=== PATIENT | female | born 1935 | race Two or more races ===

== ENCOUNTER 2019-09-05 17:26 | Inpatient (IN) | payer MEDICARE, OTHER ==
[~2019-09-05] VITALS: Ht 162.6 cm; Wt 76.2 kg
--- NOTE | 2019-09-05 17:59 | NUR ---
called [facility] to verify the md who sent the pt: Dr.kazazian jesse malave also talked to the nurse taking care of the pt at [facility].
--- NOTE | 2019-09-05 18:14 | NUR ---
[employer] APPRENTICE AT [facility] (ZEKE)
[2019-09-05] MEDS ORDERED: MAGN200T5 PO (18:24)
[2019-09-05] MEDS ORDERED: INSU100C (18:24)
[2019-09-05] MEDS ORDERED: WARF7.5T23 PO (18:24)
[2019-09-05] MEDS ORDERED: QUET25TA PO (18:24)
[2019-09-05] MEDS ORDERED: WARF5TAB77 PO (18:24)
[2019-09-05] MEDS ORDERED: OMEP20TA20 PO (18:24)
[2019-09-05] MEDS ORDERED: LEVO50TA8 PO (18:24)
[2019-09-05] MEDS ORDERED: SIMV10TA2 PO (18:24)
[2019-09-05] MEDS ORDERED: MAGN400O6 PO (18:24)
[2019-09-05] MEDS ORDERED: GLUC1KIT2 IJ (18:24)
[2019-09-05] MEDS ORDERED: LOSA25TA3 PO (18:24)
[2019-09-05] MEDS ORDERED: SPIR25TA PO (18:24)
[2019-09-05] MEDS ORDERED: BLOO-140 IN (18:24)
[2019-09-05] MEDS ORDERED: INSU100V7 SQ (18:24)
[2019-09-05] MEDS ORDERED: FERR325T28 PO (18:24)
[2019-09-05] MEDS ORDERED: BISA10SU61 RC (18:24)
[2019-09-05] MEDS ORDERED: BISO5TAB21 PO (18:24)
[2019-09-05] MEDS ORDERED: DOCU-141 PO (18:24)
[2019-09-05] MEDS ORDERED: APIX2.5T PO (18:24)
[2019-09-05] MEDS ORDERED: NA P133E RC (18:24)
[2019-09-05] MEDS ORDERED: DIGO125T PO (18:24)
[2019-09-05] MEDS ORDERED: INSU3INS6 SQ (18:24)
[2019-09-05] MEDS ORDERED: BUME2TAB7 PO (18:24)
[2019-09-05] MEDS ORDERED: CALC0.253 PO (18:24)
--- NOTE | 2019-09-05 18:29 | NUR ---
TON (ZEKE) AWARE OF PT HERE IN THE ER
--- NOTE | 2019-09-05 19:04 | NUR ---
called Dr. mac per order.
[2019-09-05 19:09] LABS: BASOPHILS % (AUTO) 0.5 % (0.0-2.0); EOSINOPHILS # (AUTO) 0.2 K/uL (0.0-0.7); EOSINOPHILS % (AUTO) 3.1 % (0.0-7.0); HEMOGLOBIN 12.9 g/dL (10.9-14.3); LYMPHOCYTES # (AUTO) 0.5 K/uL (20.0-40.0); LYMPHOCYTES % (AUTO) 6.9 % (20.5-51.5); MEAN CORPUSCULAR HEMOGLOBIN 28.6 uug (24.7-32.8); MEAN CORPUSCULAR HGB CONC 33 g/dL (32.3-35.6); MEAN CORPUSCULAR VOLUME 86.5 fL (75.5-95.3); MONOCYTES # (AUTO) 0.7 K/uL (2.0-10.0); NEUTROPHILS # (AUTO) 5.9 K/uL (1.8-8.9); NEUTROPHILS % (AUTO) 80.5 % (38.5-71.5); PLATELET COUNT (AUTO) 258 K/uL (179-408); RED BLOOD CELL COUNT(AUTO) 4.51 MIL/uL (3.63-4.92); WHITE BLOOD COUNT (AUTO) 7.3 K/uL (3.8-11.8)
[2019-09-05 19:13] LABS: CARBON DIOXIDE 36 mmol/L (21-32); CHLORIDE 95 mmol/L (98-107); CREATININE 1.7 mg/dL (0.6-1.3); GLUCOSE 128 mg/dL (74-106); POTASSIUM 3.5 mmol/L (3.5-5.1); UREA NITROGEN, BLOOD 38 mg/dL (7-18)
--- NOTE | 2019-09-05 19:13 | NUR ---
hand off and sbar given
--- NOTE | 2019-09-05 19:18 | NUR ---
Pt provided urine sample, sent to lab.
[2019-09-05 19:25] LABS: ALANINE AMINOTRANSFERASE 25 U/L (14-59); ALKALINE PHOSPHATASE 127 U/L (50-136); ASPARTATE AMINOTRANSFERASE 27 U/L (15-37); BILIRUBIN,TOTAL 0.6 mg/dL (0.2-1.0); CREATINE KINASE, TOTAL 339 U/L (26-192); LACTATE DEHYDROGENASE 213 U/L (81-234); TOTAL PROTEIN, SERUM 6.5 g/dL (6.4-8.2)
[2019-09-05 19:27] LABS: *BILIRUBIN,URIN NEGATIVE (NEGATIVE); *BLOOD, URINE NEGATIVE (NEGATIVE); *CLARITY,URINE CLEAR (CLEAR); *COLOR,URINE YELLOW (YELLOW); *KETONES,URINE NEGATIVE (NEGATIVE); *UROBILINOGEN,URINE 0.2 E.U./dl (NORMAL); LEUKOCYTE ESTERASE ,URINE NEGATIVE (NEGATIVE); NITRITE, URINE NEGATIVE (NEGATIVE); PH,URINE 6.5 (5.0-8.0); UGLUCOSE NEGATIVE (NEGATIVE)
[2019-09-05 19:31] LABS: FERRITIN 86 ng/mL (8-252)
--- NOTE | 2019-09-05 20:10 | NUR ---
3rd called placed to [facility] to admit patient . Waiting on Dr Bautista to call back.
--- NOTE | 2019-09-05 21:36 | NUR ---
Report given to [facility] Tele.
--- NOTE | 2019-09-05 22:14 | NUR ---
Pt. admitted to Tele. room 304 , under care of Dr. Bautista. Dx: Covid+, AICD displacement. Belongs List completed. All belongings with patient.
[2019-09-05 22:23] VITALS: BP 107/51
--- NOTE | 2019-09-05 23:00 | NUR ---
Pt accompanied by ER nurse via stretcher to Room 304, in stable condition. Admitted to Tele for Dx: R/O Covid and displaced pacemaker. Pt is awake, and verbally responsive. Mainly kyrgyz speaking, but able to follow commands. Pt is noted with slight anxiety, fears of door being closed. Redirected worries and provided reassurance. Not in any cardiorespiratory distress. Noted with episodes of dry cough. Patient given dinner and drink tolerated well. No issues with /Gi. Pt is able walk with standby assist to the bathroom and back to bed. Pt is however a high fall risk, and needs to be reinforced with call light, and asking for help. No skin issues noted. V pacing on the monitor at 77. All belongings accounted for. Will continue to monitor.
[2019-09-05] MEDS ORDERED: FLEET ENEMA 133 ML BOTTLE RC PRN (23:15)
[2019-09-05] MEDS ORDERED: DEXTROSE 50% 50 ML DISP.SYRIN IV PRN (23:30)
[2019-09-05] MEDS ORDERED: ONDANSETRON 4 MG/2 ML VIAL IV PRN (23:30)
[2019-09-05 23:59] LABS: *CREATININE,URINE 69.8 mg/dL (30-125)
[2019-09-06 00:23] VITALS: BP 105/44
[2019-09-06 06:00] VITALS: BP 95/48
--- NOTE | 2019-09-06 06:08 | NUR ---
No adverse events overnight. Pt is able to sleep for 6 hours. Pt remained afebrile. Fall, safety and isolation precautions maintained. No BM during shift. Able to urinate 2x to the bathroom. Will endorse accordingly.
[2019-09-06] MEDS: BLOOD SUGAR DIAGNOSTIC 1 EACH STRIP VI SCH ×4 (06:42→21:09)
[2019-09-06 06:57] LABS: BASOPHILS % (AUTO) 0.6 % (0.0-2.0); EOSINOPHILS # (AUTO) 0.2 K/uL (0.0-0.7); EOSINOPHILS % (AUTO) 3.5 % (0.0-7.0); HEMATOCRIT 36.7 % (31.2-41.9); HEMOGLOBIN 12.1 g/dL (10.9-14.3); LYMPHOCYTES # (AUTO) 0.5 K/uL (20.0-40.0); LYMPHOCYTES % (AUTO) 8.8 % (20.5-51.5); MEAN CORPUSCULAR HEMOGLOBIN 28.4 uug (24.7-32.8); MEAN CORPUSCULAR HGB CONC 33 g/dL (32.3-35.6); MEAN CORPUSCULAR VOLUME 86.5 fL (75.5-95.3); MONOCYTES # (AUTO) 0.7 K/uL (2.0-10.0); MONOCYTES % (AUTO) 11.5 % (0.0-11.0); NEUTROPHILS # (AUTO) 4.4 K/uL (1.8-8.9); NEUTROPHILS % (AUTO) 75.6 % (38.5-71.5); PLATELET COUNT (AUTO) 249 K/uL (179-408); RED BLOOD CELL COUNT(AUTO) 4.24 MIL/uL (3.63-4.92); WHITE BLOOD COUNT (AUTO) 5.8 K/uL (3.8-11.8)
[2019-09-06] MEDS ORDERED: PANTOPRAZOLE SODIUM 40 MG TABLET.DR PO SCH (07:00)
[2019-09-06] MEDS ORDERED: LEVOTHYROXINE SODIUM 50 MCG TABLET PO SCH (07:00)
[2019-09-06 07:23] LABS: ALANINE AMINOTRANSFERASE 22 U/L (14-59); ALKALINE PHOSPHATASE 114 U/L (50-136); ASPARTATE AMINOTRANSFERASE 26 U/L (15-37); BILIRUBIN,TOTAL 1.1 mg/dL (0.2-1.0); CARBON DIOXIDE 36 mmol/L (21-32); CHLORIDE 95 mmol/L (98-107); CREATININE 1.7 mg/dL (0.6-1.3); FERRITIN 81 ng/mL (8-252); GLUCOSE 177 mg/dL (74-106); POTASSIUM 3.7 mmol/L (3.5-5.1); UREA NITROGEN, BLOOD 40 mg/dL (7-18)
[2019-09-06] MEDS ORDERED: FLEET ENEMA 133 ML BOTTLE RC PRN (07:45)
--- NOTE | 2019-09-06 08:00 | NUR ---
received pt. sitting up in bed alert oriented x4 equatorial guinean speaking. pt is on room air saturating at 95%. pt. has productive cough, no sputum, no sob, denies difficulty breathing. IV in L AC 20 gauge intact patent saline lock. pt. denies pain/ discomfort. all needs met. safety measures in place. call light within reach. will continue to monitor pt.
[2019-09-06] MEDS: FERROUS SULFATE 325 MG TABEC PO SCH ×2 (08:57→20:50)
[2019-09-06] MEDS: CALCITRIOL 0.25 MCG CAPSULE PO SCH (08:57)
[2019-09-06] MEDS: MAGNESIUM OXIDE 400 MG TABLET PO SCH (08:59)
[2019-09-06] MEDS ORDERED: MAGNESIUM OXIDE 400 MG TABLET PO SCH (09:00)
[2019-09-06] MEDS ORDERED: BISACODYL 10 MG SUPP.RECT RC SCH (09:00)
[2019-09-06] MEDS ORDERED: MAGNESIUM HYDROXIDE 30 ML LIQUID UDC PO SCH ×2 (09:00)
[2019-09-06] MEDS ORDERED: BUMETANIDE 1 MG TABLET PO SCH (09:00)
[2019-09-06] MEDS ORDERED: SPIRONOLACTONE 25 MG TABLET PO SCH (09:00)
[2019-09-06] MEDS ORDERED: BISACODYL 10 MG SUPP.RECT RC PRN (09:00)
[2019-09-06] MEDS: INSULIN REGULAR, HUMAN 300 UNIT/3 ML VIAL SQ PRN ×4 (09:02→21:15)
--- NOTE | 2019-09-06 10:00 | NUR ---
Pt. has aldactone and bumex ordered; however, BP is 105/48 HR 70. Did not give yet, spoke to Dr. Kauffman he stated he will put in order on what to give. Bumex is discontinued. Will provide pt. with aldactone as ordered
[2019-09-06 12:00] VITALS: BP 100/48
[2019-09-06 16:00] VITALS: BP 101/51
[2019-09-06] MEDS ORDERED: WARFARIN SODIUM 5 MG TABLET PO SCH ×2 (17:00)
--- NOTE | 2019-09-06 18:22 | NUR ---
Pt. had no fever throughout shift. pt. had no SOB/ difficulty breathing/ desaturation throughout shift. Pt. does have productive cough. no sputum. pt. states she feels okay. all needs met. safety measures in place. call light within reach. will endorse to pm nurse
--- NOTE | 2019-09-06 19:30 | NUR ---
Received patient in her room. AAOX4, mainly Mosotho speaking. In no acute distress. Denies any pain or SOB. Afebrile. V Pacing on tele at 70/hr. IV site on left AC intact and patent. Droplet and contact precaution observed. Safety measure initiated and call elias within reached.
[2019-09-06] MEDS: QUETIAPINE FUMARATE 25 MG TABLET PO SCH (20:50)
[2019-09-06] MEDS: DOCUSATE SODIUM 100 MG CAPSULE PO SCH (20:50)
[2019-09-06] MEDS: SIMVASTATIN 10 MG TABLET PO SCH (20:50)
[2019-09-06] MEDS: APIXABAN 5 MG TABLET PO SCH (20:50)
[2019-09-06 21:45] VITALS: BP 105/48
[2019-09-07 01:21] VITALS: BP 100/60
[2019-09-07 04:24] VITALS: BP 105/57
--- NOTE | 2019-09-07 06:11 | NUR ---
Slept well last night. In no acute distress. Denies any pain or SOB. Afebrile. V Pacing on tele at 74/hr. IV site on left AC intact and patent. Droplet and contact precaution maintained. Safety measure maintained and call elias within reached.
[2019-09-07] MEDS: BLOOD SUGAR DIAGNOSTIC 1 EACH STRIP VI SCH ×4 (06:37→22:19)
[2019-09-07 07:43] LABS: BASOPHILS % (AUTO) 0.7 % (0.0-2.0); EOSINOPHILS # (AUTO) 0.3 K/uL (0.0-0.7); EOSINOPHILS % (AUTO) 5.2 % (0.0-7.0); HEMATOCRIT 37.7 % (31.2-41.9); HEMOGLOBIN 12.1 g/dL (10.9-14.3); LYMPHOCYTES # (AUTO) 0.5 K/uL (20.0-40.0); LYMPHOCYTES % (AUTO) 10.5 % (20.5-51.5); MEAN CORPUSCULAR HEMOGLOBIN 27.9 uug (24.7-32.8); MEAN CORPUSCULAR HGB CONC 32 g/dL (32.3-35.6); MEAN CORPUSCULAR VOLUME 87.2 fL (75.5-95.3); MONOCYTES # (AUTO) 0.6 K/uL (2.0-10.0); MONOCYTES % (AUTO) 11.9 % (0.0-11.0); NEUTROPHILS # (AUTO) 3.5 K/uL (1.8-8.9); NEUTROPHILS % (AUTO) 71.7 % (38.5-71.5); PLATELET COUNT (AUTO) 229 K/uL (179-408); RED BLOOD CELL COUNT(AUTO) 4.33 MIL/uL (3.63-4.92); WHITE BLOOD COUNT (AUTO) 4.9 K/uL (3.8-11.8)
[2019-09-07 07:59] LABS: CREATININE 1.3 mg/dL (0.6-1.3); MAGNESIUM 2.1 mg/dL (1.8-2.4); PHOSPHOROUS 3.9 mg/dL (2.5-4.9); POTASSIUM 3.6 mmol/L (3.5-5.1); TOTAL PROTEIN, SERUM 5.8 g/dL (6.4-8.2)
--- NOTE | 2019-09-07 08:00 | NUR ---
Received patient in her room. Pt. is sitting up alert oriented x4 mainly Indian speaking. In no acute distress/ discomfort. Denies any pain or SOB. Pt on room air saturating 95%. Afebrile. V Pacing on tele at 70/hr. IV site on left AC intact and patent. All needs met. Droplet and contact precaution observed. Safety measure initiated and call elias within reached. Will continue to monitor pt.
[2019-09-07 08:30] VITALS: BP 107/63
[2019-09-07] MEDS: LEVOTHYROXINE SODIUM 50 MCG TABLET PO SCH (08:45)
[2019-09-07] MEDS: FERROUS SULFATE 325 MG TABEC PO SCH ×2 (08:45→21:54)
[2019-09-07] MEDS: BUMETANIDE 1 MG TABLET PO SCH (08:45)
[2019-09-07] MEDS: PANTOPRAZOLE SODIUM 40 MG TABLET.DR PO SCH (08:45)
[2019-09-07] MEDS: CALCITRIOL 0.25 MCG CAPSULE PO SCH (08:46)
[2019-09-07] MEDS: MAGNESIUM OXIDE 400 MG TABLET PO SCH (08:47)
[2019-09-07] MEDS: APIXABAN 5 MG TABLET PO SCH ×2 (08:50→22:10)
[2019-09-07] MEDS: INSULIN REGULAR, HUMAN 300 UNIT/3 ML VIAL SQ PRN ×3 (08:53→22:22)
[2019-09-07] MEDS ORDERED: DIGOXIN 125 MCG TABLET PO SCH (09:00)
[2019-09-07 14:57] VITALS: BP 115/62
[2019-09-07 20:00] VITALS: BP 121/53
--- NOTE | 2019-09-07 20:00 | NUR ---
Received patient awake and alert in bed, no signs of acute distress noted. No complaints of pain or SOB. Patient is Japanese speaking. a/Ox3. Heplock on the left AC is intact and patent. Patient is on isolation for COVID19. Patient is ambulatory with assist. Safety measures initiated. Bed is low and locked, call light within reach, bed alarm on. Will continue to monitor.
[2019-09-07] MEDS: DOCUSATE SODIUM 100 MG CAPSULE PO SCH (21:52)
[2019-09-07] MEDS: SIMVASTATIN 10 MG TABLET PO SCH (21:54)
[2019-09-07] MEDS: QUETIAPINE FUMARATE 25 MG TABLET PO SCH (21:54)
[2019-09-08] VITALS: BP 120/55
[2019-09-08 04:00] VITALS: BP 109/54
[2019-09-08] MEDS: BLOOD SUGAR DIAGNOSTIC 1 EACH STRIP VI SCH ×3 (06:33→17:30)
[2019-09-08 06:45] LABS: CREATININE 1.3 mg/dL (0.6-1.3); MAGNESIUM 2.1 mg/dL (1.8-2.4); POTASSIUM 3.4 mmol/L (3.5-5.1)
[2019-09-08 08:00] VITALS: BP 118/56
[2019-09-08] MEDS: FERROUS SULFATE 325 MG TABEC PO SCH (08:36)
[2019-09-08] MEDS: PANTOPRAZOLE SODIUM 40 MG TABLET.DR PO SCH (08:36)
[2019-09-08] MEDS: MAGNESIUM OXIDE 400 MG TABLET PO SCH (08:36)
[2019-09-08] MEDS: LEVOTHYROXINE SODIUM 50 MCG TABLET PO SCH (08:36)
[2019-09-08] MEDS: CALCITRIOL 0.25 MCG CAPSULE PO SCH (08:38)
[2019-09-08] MEDS: BUMETANIDE 1 MG TABLET PO SCH (08:38)
[2019-09-08] MEDS: APIXABAN 5 MG TABLET PO SCH (08:58)
--- NOTE | 2019-09-08 09:30 | NUR ---
Pt received AAOx3, Wolof speaking, compliant with routine morning medications. No signs of acute distress noted. No complaints SOB, denies pain. Negative COVID19 results received. MD and spine supervisor notified. Pt approved to transfer to Med/Surg 3rd floor. Report given to Liza VÁSQUEZ. Pt safely transferred via bed. Safety measures initiated. Bed is low and locked, call light within reach, bed alarm on in room 309. Will remove from system shortly.
--- NOTE | 2019-09-08 09:45 | NUR ---
TRANSFER FROM 2ND FLOOR. V/S STABLE. NO C/O. NO COUGH NOTED. AFEBRILE.
[2019-09-08 10:10] VITALS: BP 102/61
[2019-09-08] MEDS: POTASSIUM CHLORIDE 50 ML IV SCH (13:45)
[2019-09-08] MEDS: INSULIN REGULAR, HUMAN 300 UNIT/3 ML VIAL SQ PRN (13:46)
[2019-09-08 15:44] VITALS: BP 106/55
--- NOTE | 2019-09-08 18:00 | NUR ---
V/S STABLE. NO COUGH NOTED AT THIS TIME. DENIES SOB. PT. STATES FEELS GOOD AND IS VERY ANXIOUS TO GO HOME. DR. ONOFRE CALLED AND REVIEWED ALL LABS AND CONDITION OF PT. COVID TEST RESULTS NEGATIVE. PT'S FAMILY NOTIFIED OF DISCHARGE AND TRANSFER TO [facility]. REPORT CALLED TO ROSA AT FACILITY. IV D/C'D AWAITING AMBULANCE TRANSPORT.
[2019-09-08 20:00] VITALS: BP 124/60
[2019-09-09] MEDS ORDERED: LEVOTHYROXINE SODIUM 50 MCG TABLET PO SCH (07:00)
[2019-09-09] MEDS ORDERED: PANTOPRAZOLE SODIUM 40 MG TABLET.DR PO SCH (07:00)
== END 2019-09-08 21:31 | DRG 202 ==
LOC: ER 17:30 → TELE3 21:42 → MEDSURG3 09-07 15:40 → MED 09-07 18:20 → MEDSURG3 09-08 09:40
PROVIDERS: ADMIT Internal Medicine; ATTEND Internal Medicine Nephrology
DX: J20.9 Acute bronchitis, unspecified (principal); N17.0 Acute kidney failure with tubular necrosis; I48.20 Chronic atrial fibrillation, unspecified; I13.0 Hypertensive heart and chronic kidney disease with heart failure and stage 1 through stage 4 chronic kidney disease, or unspecified chronic kidney disease; I42.0 Dilated cardiomyopathy; I50.42 Chronic combined systolic (congestive) and diastolic (congestive) heart failure; I11.0 Hypertensive heart disease with heart failure; Z95.810 Presence of automatic (implantable) cardiac defibrillator; R05 Cough; E03.9 Hypothyroidism, unspecified; E11.22 Type 2 diabetes mellitus with diabetic chronic kidney disease; E66.01 Morbid (severe) obesity due to excess calories; E78.5 Hyperlipidemia, unspecified; E87.6 Hypokalemia; F03.90 Unspecified dementia, unspecified severity, without behavioral disturbance, psychotic disturbance, mood disturbance, and anxiety; I25.10 Atherosclerotic heart disease of native coronary artery without angina pectoris; K21.9 Gastro-esophageal reflux disease without esophagitis; N18.9 Chronic kidney disease, unspecified; Z79.01 Long term (current) use of anticoagulants; Z79.4 Long term (current) use of insulin; F32.9 Major depressive disorder, single episode, unspecified; Z88.0 Allergy status to penicillin; Z88.8 Allergy status to other drugs, medicaments and biological substances
CPT/HCPCS: 36415; 70030-TC; 71045; 83605; 83615; 83735; 84100; 84156; 84300; 85025; 85610; 85730; 86140; 87040; 87086; 93005; A4663; G0378; J1815; J3480; J7050